=== PATIENT | male | born 1995 | race Caucasian/White ===

== ENCOUNTER 2019-04-11 19:10 | Emergency (ER) | payer BC ==
[~2019-04-11] VITALS: Ht 177.8 cm; Wt 121.6 kg
--- NOTE | 2019-04-11 19:26 | NUR ---
Dr Giles into eval patient.
--- NOTE | 2019-04-11 19:32 | NUR ---
Patient discharged to home in stable conditon. Written and verbal after care instructions given. Patient verbalizes understanding of instructions. Walked out of ER with no distress noted.
== END 2019-04-11 19:33 | disposition home or self-care (01) ==
LOC: ER 19:10
DX: H66.91 Otitis media, unspecified, right ear (principal)
CPT/HCPCS: A4663